=== PATIENT | male | born 1990 | race Asian ===

== ENCOUNTER 2023-01-20 08:23 | Outpatient (CLI) | payer BC, SELFPAY | END 2023-01-20 08:24 | disposition home or self-care (01) | LOC: NFLDREF 01-21 01:36 | PROVIDERS: PCP Family Medicine; Referring Provider Family Medicine; Visit Provider Family Medicine | DX: Z13.1 Encounter for screening for diabetes mellitus (principal); Z13.6 Encounter for screening for cardiovascular disorders | CPT/HCPCS: 80061; 82947 ==

== ENCOUNTER 2024-01-27 07:55 | Outpatient (CLI) | payer BC, SELFPAY ==
--- OUTSIDE RECORDS SUMMARY | 2024-01-30 08:04 | XMS_ITS ---
Author Name Unknown Organization [facility] Address [address] [place] [address] Care Team Providers Care Scrap Crane Operator Name Role Phone Unavailable Unavailable Unavailable Surgery Details Not on file Complications Check Surgery Details section. Procedure Estimated Blood Loss Check Surgery Details section. Procedure Findings Check Surgery Details section. Procedure Specimens Taken Check Surgery Details section.
--- OUTSIDE RECORDS SUMMARY | 2024-01-30 08:04 | XMS_ITS | Clinical Summary ---
Author Name Unknown Organization [facility] Address [address] [place] [address] Care Team Providers Care Heddle Machine Operator Name Role Phone Elsewhere, Pcp Primary Care Provider Unavailabl e Source Comments Patient records contain information from all sites at [facility]. For routine questions regarding patient records, call [phone] during business hours, M-F 8:00 AM - 5:00 PM Central Time. Record requests for emergency care only can be directed to [phone] at any time.[facility] Allergies No known active allergies Medications Medication Sig Dispensed Refills Start Date End Date Status acetaminophen (TYLENOL) 500 mg capsule Take 1,000 mg by mouth every 6 (six) hours as needed for pain. Active ibuprofen (ADVIL,MOTRIN) 600 mg tablet Take 600 mg by mouth every 6 (six) hours as needed for pain. Active escitalopram (LEXAPRO) 10 mg tablet Take 10 mg by mouth daily. 08/05/2022 Active Active Problems No known active problems Immunizations Name Administration Dates Next Due Td (Adult), adsorbed 01/06/2004 Ty21a (oral) 01/06/2004 Social History Tobacco Use Types Packs/Day Years Used Date Smoking Tobacco: Never Passive Smoke Exposure: Never Smokeless Tobacco: Never Tobacco Cessation:Counseling Given: Not Answered Alcohol Use Standard Drinks/Week Comments Yes 1 (1 standard drink = 0.6 oz pur e alcohol) Humiliation, Afraid, Rape, and Kick questionnair e Answer Date Recorded Within the last year, have y ou been afraid of your partner or ex-partner? No 07/30/2022 Within the last year, have y ou been humiliated or emotionally abused in other ways by your partner or ex-partner? No Within the last year, have y ou been kicked, hit, slapped, or otherwise physically hurt by your partner or ex-partner? No 07/30/2022 Within the last year, have y ou been raped or forced to have any kind of sexual activity by your partner or ex-partner? No 07/30/2022 Social Connection and Isolation Panel [NHANES] A nswer Date Recorded In a typical week, how many times do you talk on the phone with family, friends, or neighbors? Once a week 07/30/20 How often do you get togethe r with friends or relatives? Once a week 07/30/2022 How often do you attend chur ch or mosque services? Never 07/30/2022 Do you belong to any clubs o r organizations such as jain groups, unions, fraternal or athletic groups, or school groups? No 07/30/2022 How often do you attend meet ings of the clubs or organizations you belong to? Never 07/30/2022 Are you , , di vorced, , never , or living with a partner? Living with partner 07/30/2022 AUDIT-C Answer Date Recorded Q1: How often do you have a drink containing alc ohol? 2-4 times a month 07/30/2022 Q2: How many drinks containi ng alcohol do you have on a typical day when you are drinking? 1 or 2 07/30/2022 Q3: How often do you have si x or more drinks on one occasion? Less than monthly 07/30/2022 Overall Financial Resource Strain (CARDIA) Answe r Date Recorded How hard is it for you to pa y for the very basics like food, housing, medical care, and heating? Not very hard 07/30/2022 [facility] - Occupational Stress Questionnaire Answer Date Recorded Do you feel stress - tense, restless, nervous, or anxious, or unable to sleep at night because your mind is troubled all the time - these days? Rather much 07/30/2022 Exercise Vital Sign Answer Date Recorde d On average, how many days pe r week do you engage in moderate to strenuous exercise (like a brisk walk)? 0 days 07/30/2022 On average, how many minutes do you engage in exercise at this level? 0 min 07/30/2022 Hunger Vital Sign Answer Date Recorded Within the past 12 months, y ou worried that your food would run out before you got the money to buy more. Never true 07/30/20 Within the past 12 months, t he food you bought just didn't last and you didn't have money to get more. Never true 07/30/2022 PRAPARE - Transportation Answer Date Re corded In the past 12 months, has l ack of transportation kept you from medical appointments or from getting medications? No 07/11 In the past 12 months, has l ack of transportation kept you from meetings, work, or from getting things needed for daily living? No 07/30/2022 Housing Stability Vital Sign Answer Kenroy e Recorded In the last 12 months, was t here a time when you were not able to pay the mortgage or rent on time? No 07/30/2022 In the last 12 months, how many places have you lived? 1 07/30/2022 In the last 12 months, was t here a time when you did not have a steady place to sleep or slept in a fdc (including now)? No 07/30/2022 Nutrition Answer Date Recorded Nutrition: EVOO Fat Source No 07/30 On average, how many serving s of fruits and vegetables do you eat per day (serving size is equal to 1 cup or approximately the size of a tennis ball)? 0-1 07/30/2022 Dental Answer Date Recorded Dental: Regular Dentist Yes 07/30/20 Employment Answer Date Recorded Employment status Employed but not working due t o illness or injury 07/30/2022 Education Answer Date Recorded What is the highest level of school you have completed or the highest degree you have received? Associate degree: academic program 07/30/2022 Sex and Gender Information Value Date Recorded Sex Assigned at Male 07/30/2022 8:01 PM CDT Gender Identity Male 07/30/2022 8:01 PM CDT Sexual Orientation Straight 07/30/2022 8: 01 PM CDT Plan of Treatment Health Maintenance Due Date Last Done Comments HIV Screening 1989 Hepatitis C Screening 1989 Lipid (Cholesterol) Screening 1989 Hepatitis B Vaccines (2 of 3 - 3-dose series) 06/15/2000 05/18/2000, 05/18/2000 COVID-19 Vaccine (3 - 2022-24 season) 2023 02/03/2021, 01/13/2021 Depression Screening (Annual PHQ-2) 10/10/2023 DTaP,Tdap,and Td Vaccines (3 - Td or Tdap) 01/06/2032 01/05/2022, 01/06/2004, 01/06/2004 Influenza Vaccine Completed 07/22/2023, , 08/11/2011, Additional history exists HPV Vaccines Aged Out No longer eligi ble based on patient's age to complete this topic Pneumococcal vaccine (0-64 years) Aged Out No longer eligible based on patient's age to complete this topic Care Teams Heddle Machine Operator Relationship Specialty Start Date End Date Elsewhere, Pcp PCP - General Family Medicine 08/06/20
--- OUTSIDE RECORDS SUMMARY | 2024-01-30 08:04 | XMS_ITS | Referral Summary ---
Author Name Unknown Organization [facility] Address [address] [place] [address] Care Team Providers Care Induction Machine Setter Name Role Phone Elsewhere, Pcp Primary Care Provider Unavailabl e Source Comments Patient records contain information from all sites at [facility]. For routine questions regarding patient records, call [phone] during business hours, M-F 8:00 AM - 5:00 PM Central Time. Record requests for emergency care only can be directed to [phone] at any time.[facility] Allergies No known active allergies Medications Medication [...] often do you attend chur ch or zoroastrianism services? Never 07/30/2022 Do you belong to any clubs o r organizations such as sabianist groups, unions, fraternal or athletic groups, or [...] care, and heating? Not very hard 07/30/2022 [facility] [place] [facility] Occupat ional Health - Occupational Stress [...] place to sleep or slept in a senior living (including now)? No 07/30/2022 Nutrition Answer Date [...] 8: 01 PM CDT Plan of Treatment Not on file Care Teams Induction Machine Setter Relationship Specialty Start Date End Date Elsewhere, Pcp PCP - General Family Medicine 08/06/20
== END 2024-01-27 07:56 | disposition home or self-care (01) ==
LOC: NFLDREF 01-30 08:03
PROVIDERS: PCP Family Medicine; Referring Provider Family Medicine; Visit Provider Family Medicine
DX: E78.5 Hyperlipidemia, unspecified (principal)
CPT/HCPCS: 80061

== ENCOUNTER 2025-03-05 07:44 | Outpatient (CLI) | payer BC, SELFPAY | END 2025-03-05 07:45 | disposition home or self-care (01) | LOC: NFLDREF 07:46 | PROVIDERS: PCP Family Medicine; Visit Provider Family Medicine | DX: Z00.01 Encounter for general adult medical examination with abnormal findings (principal); R03.0 Elevated blood-pressure reading, without diagnosis of hypertension; R53.83 Other fatigue | CPT/HCPCS: 80061; 84443 ==

== ENCOUNTER 2025-04-02 12:04 | Outpatient (CLI) | payer BC, SELFPAY ==
--- OUTSIDE RECORDS SUMMARY | 2025-04-03 00:58 | XMS_ITS | Clinical Summary ---
Author Organization [facility] Address [address] [place] [id number] Care Team Providers Care Intravenous Therapy Nurse Name Role Phone Clinic, [facility] Primary Care Pro vider Allergies No known active allergies Medications No known medications Active Problems No known active problems Immunizations Immunization Administration Dates Next Due Hepatitis B, Unspecified 05/18/2000 Influenza, IIV3 (Age >=3 years) 08/11/2011 Tdap, Unspecified 01/06/2004 Typhoid, Unspecified 01/06/2004 Family History Medical History Relation Name Comments Good Health Brother 3 Good Health Brother 4 Good Health Father Good Health Mother Good Health Sister 2 Relation Name Status Comments Brother 1 Alive Brother 2 Alive Brother 3 Brother 4 Father Alive Mother Alive Sister 1 Alive Sister 2 Social History Tobacco Use Types Packs/Day Years Used Date Smoking Tobacco: Never Smokeless Tobacco: Never Alcohol Use Standard Drinks/Week Comments Yes 0 (1 standard drink = 0.6 oz pur e alcohol) social Sex and Gender Information Value Date Recorded Sex Assigned at Not on file 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 Gender Identity Not on file Sexual Orientation Not on file Obstetrics History Last Filed Vital Signs Vital Sign Reading Time Taken Comments Blood Pressure 133/95 06/27/2022 10:49 AM CDT Pulse 80 06/27/2022 10:49 AM CDT Temperature 36.8 C (98.2 F) 06/27/2022 10:49 AM CDT Respiratory Rate 20 06/27/2022 10:49 AM CDT Oxygen Saturation 98% 06/27/2022 10:49 AM CDT Inhaled Oxygen Concentration - - Weight 99.8 kg (220 lb) 06/27/2022 10:49 AM CDT Height 167.6 cm (5' 6) 06/27/2022 10:49 AM CDT Body Mass Index 35.51 06/27/2022 10:49 AM CDT Plan of Treatment Health Maintenance Due Date Last Done Comments Hepatitis B series for 19+ ( 2 of 3 - 3-dose series) 06/15/2000 05/18/2000 Depression screening for age 12+ 2001 Tetanus booster 01/05/2014 01/06/2004 BMI (ht and wt on same day) for age 18+ 06/07/2020 06/07/2019 Lipids for age 35-44 01/09/2024 COVID-19 vaccine series (2023- season) 2024 02/03/2021, 01/13/2021 Influenza Vaccine (Season Ended) 2025 08/11/2011 Tdap Completed 01/06/2004 HIV for age 15-65 Completed 01/20/2010 Hepatitis C screening for ag e 18-79 Completed 01/20/2010 Pneumococcal series for age 6-49 Aged Out No longer eligible b ased on patient's age to complete this topic Procedures Procedure Name Priority Date/Time Associated Diagnosis Comments ANTI HIV 1/2 Routine 01/20/2010 9:04 AM CDT Screening for STDs (sexually transmitted diseases) ANTI HCV Routine 01/20/2010 9:04 AM CDT Screening for STDs (sexually transmitted diseases) from Last 3 Months or Most Recently Relevant to Health Maintenance Results * ANTI HCV (01/20/2010 9:04 AM CDT) ANTI HCV Non-reacti ve [facility] Blood specimen (specimen) BLOOD SPECIMEN / Unknown 01/20/2010 9:04 AM CDT 01/20/2010 8:52 AM CDT us Zulema Torres NP SEND OUTS Final Result [facility] [place] [address]IP [id number] [id number] * ANTI HIV 1/2 (01/20/2010 9:04 AM CDT) ANTI HIV 1/2 Non-reacti ve [facility] Blood specimen (specimen) BLOOD SPECIMEN / Unknown 01/20/2010 9:04 AM CDT 01/20/2010 8:52 AM CDT us Zulema Torres TAPE MAKING MACHINE OPERATOR SEND OUTS Final Result [facility] INTERNAL ZIP [id number] [id number] from Last 3 Months or Most Recently Relevant to Health Maintenance Insurance [employer] OF NON-LA-ITS * Guarantor: BAILEY AVALOS (DOT,PRE-EMP,RESP,INJ,AUDIO) Account Type Relation to Patient Date of Phone Billing Address [facility] [employer] [address] [place] [address] Care Teams Intravenous Therapy Nurse Relationship Specialty Start Date End Date Clinic, [facility] [address] [place] [address] PCP - General 03/18/15
--- NOTE | 2025-04-09 11:54 | W.PM.SLEEP ---
Sleep Study Details Details Interpreting Provider: Umer Date of Sleep Study: 04/02/25 Sleep Study Details: STUDY TYPE:? Home unattended ? BMI:? 35 ORDERING PROVIDER:Zion Owusu INDICATION:? Concerned about sleep apnea ? SLEEP SUMMARY:? 398 minutes total sleep time monitored RESPIRATORY SUMMARY:? AHI 27.1 per rule 1A, 18.4 per CMS guideline Low oxygen 81 0.4% of study oxygen less than 90% Snoring 66.3% PERIODIC LIMB MOVEMENTS OF SLEEP:? Not recorded CARDIAC:? Range 63-107, mean 81.3 beats per minute IMPRESSION:? Moderate obstructive sleep apnea RECOMMENDATION: Treatment options include CPAP, dental appliance and/or airway expansion surgery. Weight loss is also recommended.
== END 2025-04-02 12:05 | disposition home or self-care (01) ==
LOC: SLEEP 12:05
PROVIDERS: PCP Family Medicine; Visit Provider Otolaryngology
DX: G47.33 Obstructive sleep apnea (adult) (pediatric) (principal)
CPT/HCPCS: 95806